=== PATIENT | female | born 1960 | race Caucasian/White ===

== ENCOUNTER 2019-08-30 22:29 | Emergency (ER) | payer BC ==
[~2019-08-30] VITALS: Ht 160 cm; Wt 55.8 kg
[2019-08-30] MEDS ORDERED: HYDROCODONE/APAP 10-325 MG TABLET ONE (22:57)
[2019-08-30] MEDS ORDERED: HYDROCODONE/APAP 10-325 MG TABLET PO ONE (23:00)
[2019-08-31 00:21] VITALS: BP 128/88
--- NOTE | 2019-08-31 00:21 | NUR ---
Patient discharged to home in stable condition. Written and verbal after care instructions given. Patient verbalizes understanding of instructions. Stressed follow up or return to ER for worsening s/s. Pt states she feels better. Will be taking [employer] home.
== END 2019-08-31 00:22 | disposition home or self-care (01) ==
LOC: ER 22:29
DX: S13.4XXA Sprain of ligaments of cervical spine, initial encounter (principal); W18.30XA Fall on same level, unspecified, initial encounter; Y92.89 Other specified places as the place of occurrence of the external cause; Z98.84 Bariatric surgery status; Z90.49 Acquired absence of other specified parts of digestive tract; Z90.710 Acquired absence of both cervix and uterus; M54.5 Low back pain; M25.551 Pain in right hip; M25.561 Pain in right knee
CPT/HCPCS: 72125; 72192; 73562; A4663

== ENCOUNTER 2019-09-17 21:54 | Emergency (ER) | payer BC ==
[~2019-09-17] VITALS: Ht 160 cm; Wt 64.9 kg
[~2019-09-17 21:54] MED LIST: CLON1TAB PO; LORA1TAB PO; QUET100T PO; QUET300T2 PO; SERT100T PO
--- NOTE | 2019-09-17 22:20 | NUR ---
Dr. Hinkle at bedside for MSE
[2019-09-17] MEDS ORDERED: HYDROCODONE/APAP 5-325MG TABLET PO ONE (22:30)
[2019-09-17] MEDS ORDERED: HYDROCODONE/APAP 5-325MG TABLET ONE (22:37)
--- NOTE | 2019-09-17 23:46 | NUR ---
Patient discharged to home in stable condition. Written and verbal after care instructions given. Patient verbalizes understanding of instructions. Stressed follow up or return to ER for worsening s/s. Patient ambulating with steady gait. Patient noted getting inside the rear passenger side of ride share vehicle. NAD noted
[2019-09-17 23:48] VITALS: BP 121/73
== END 2019-09-17 23:46 | disposition home or self-care (01) ==
LOC: ER 21:59
DX: M25.551 Pain in right hip (principal); M25.511 Pain in right shoulder; M25.521 Pain in right elbow; W18.30XA Fall on same level, unspecified, initial encounter; Y92.89 Other specified places as the place of occurrence of the external cause
CPT/HCPCS: 72170; A4663

== ENCOUNTER 2019-11-17 01:03 | Emergency (ER) | payer BC, OTHER ==
[~2019-11-17] VITALS: Ht 160 cm; Wt 55.8 kg
--- NOTE | 2019-11-17 01:25 | NUR ---
DR. LONDON AT BEDSIDE FOR MSE.
[2019-11-17] MEDS ORDERED: HYDROCODONE/APAP 10-325 MG TABLET PO ONE (01:30)
[2019-11-17] MEDS ORDERED: HYDROCODONE/APAP 10-325 MG TABLET ONE (01:33)
--- NOTE | 2019-11-17 01:58 | NUR ---
Patient discharged to home in stable condition. Written and verbal after care instructions given. Patient verbalizes understanding of instructions. Stressed follow up or return to ER for worsening s/s. patient left with stable gait.
[2019-11-17 01:59] VITALS: BP 139/94
== END 2019-11-17 02:12 | disposition home or self-care (01) ==
LOC: ER 01:09
DX: M54.5 Low back pain (principal); M25.551 Pain in right hip; G89.4 Chronic pain syndrome; W10.9XXA Fall (on) (from) unspecified stairs and steps, initial encounter; Y92.89 Other specified places as the place of occurrence of the external cause; Z98.84 Bariatric surgery status; F31.9 Bipolar disorder, unspecified; Z90.710 Acquired absence of both cervix and uterus; Z79.899 Other long term (current) drug therapy; Z76.5 Malingerer [conscious simulation]
CPT/HCPCS: 72100; 73502; A4663

== ENCOUNTER 2019-11-22 14:45 | Emergency (ER) | payer BC ==
[~2019-11-22] VITALS: Ht 160 cm; Wt 55.8 kg
[2019-11-22] MEDS: ONDANSETRON ODT 4 MG TAB.RAPDIS SL ONE (15:31)
[2019-11-22] MEDS ORDERED: ONDANSETRON ODT 4 MG TAB.RAPDIS ONE (15:31)
[2019-11-22] MEDS ORDERED: HYDROCODONE/APAP 10-325 MG TABLET ONE (15:31)
[2019-11-22] MEDS ORDERED: LORAZEPAM 1 MG TABLET ONE (15:32)
[2019-11-22] MEDS: HYDROCODONE/APAP 10-325 MG TABLET PO ONE (15:43)
[2019-11-22] MEDS: LORAZEPAM 0.5 MG TABLET PO ONE (15:43)
--- NOTE | 2019-11-22 15:43 | NUR ---
Patient discharged to home in stable condition. Written and verbal after care instructions given. Patient verbalizes understanding of instructions. Stressed follow up or return to ER for worsening s/s.pt using ub[employer] to go home.
== END 2019-11-22 15:45 | disposition home or self-care (01) ==
LOC: ER 14:45
DX: Z76.0 Encounter for issue of repeat prescription (principal); G89.4 Chronic pain syndrome; M54.5 Low back pain; Z98.84 Bariatric surgery status; Z90.710 Acquired absence of both cervix and uterus; F31.9 Bipolar disorder, unspecified; Z79.899 Other long term (current) drug therapy
CPT/HCPCS: A4663; Q0162

== ENCOUNTER 2019-12-16 04:18 | Emergency (ER) | payer BC ==
[~2019-12-16] VITALS: Ht 162.6 cm; Wt 64.9 kg
[2019-12-16] MEDS ORDERED: HYDR-4384 PO (04:43)
--- NOTE | 2019-12-16 04:44 | NUR ---
Dr. Rueda at bedside for MSE.
[2019-12-16] MEDS ORDERED: HYDROCODONE/APAP 10-325 MG TABLET ONE (04:53)
--- NOTE | 2019-12-16 04:58 | NUR ---
Patient discharged to home in stable condition. Written and verbal after care instructions given. Patient verbalizes understanding of instructions. Stressed follow up or return to ER for worsening s/s. aa/ox4. able to speak in complete sentences no s/s of distress. In stable condition. instructed pt not to drive. Pt stated will take uber home all belongings with pt
[2019-12-16 04:59] VITALS: BP 133/79
[2019-12-16] MEDS ORDERED: HYDROCODONE/APAP 10-325 MG TABLET PO ONE (05:00)
== END 2019-12-16 05:06 | disposition home or self-care (01) ==
LOC: ER 04:21
DX: S70.01XA Contusion of right hip, initial encounter (principal); S80.01XA Contusion of right knee, initial encounter; W07.XXXA Fall from chair, initial encounter; Y92.89 Other specified places as the place of occurrence of the external cause; G89.4 Chronic pain syndrome; M54.40 Lumbago with sciatica, unspecified side; Z98.84 Bariatric surgery status; Z90.710 Acquired absence of both cervix and uterus; F31.9 Bipolar disorder, unspecified; Z79.899 Other long term (current) drug therapy; Z91.81 History of falling
CPT/HCPCS: A4663

== ENCOUNTER 2020-01-14 01:16 | Emergency (ER) | payer BC ==
[~2020-01-14] VITALS: Ht 160 cm; Wt 55.8 kg
[~2020-01-14 01:16] MED LIST changes: +HYDR-4384 PO
[2020-01-14] MEDS ORDERED: KETOROLAC TROMETHAMINE 30 MG INJ IM ONE (01:30)
[2020-01-14] MEDS ORDERED: KETOROLAC TROMETHAMINE 30 MG INJ ONE (01:30)
[2020-01-14 01:33] VITALS: BP 112/83
--- NOTE | 2020-01-14 01:33 | NUR ---
Patient discharged to home in stable condition. Written and verbal after care instructions given. Patient verbalizes understanding of instructions. Stressed follow up or return to ER for worsening s/s. Patient is able to ambulated very well without any distress or discomfort unassisted.
== END 2020-01-14 01:34 | disposition home or self-care (01) ==
LOC: ER 01:19
DX: M25.561 Pain in right knee (principal); G89.4 Chronic pain syndrome; Z91.81 History of falling; F31.9 Bipolar disorder, unspecified; Z88.0 Allergy status to penicillin; Z88.2 Allergy status to sulfonamides; Z98.84 Bariatric surgery status; Z90.49 Acquired absence of other specified parts of digestive tract; Z90.710 Acquired absence of both cervix and uterus; Z79.899 Other long term (current) drug therapy
CPT/HCPCS: 96372; 99283; J1885; A4663

== ENCOUNTER 2020-01-16 13:40 | Emergency (ER) | payer BC ==
[~2020-01-16] VITALS: Ht 160 cm; Wt 55.8 kg
[2020-01-16] MEDS ORDERED: KETOROLAC TROMETHAMINE 30 MG INJ IM ONE (15:45)
[2020-01-16] MEDS ORDERED: KETOROLAC TROMETHAMINE 30 MG INJ ONE (15:46)
[2020-01-16 15:59] VITALS: BP 120/88
== END 2020-01-16 15:59 | disposition home or self-care (01) ==
LOC: ER 13:46
DX: S13.9XXA Sprain of joints and ligaments of unspecified parts of neck, initial encounter (principal); W19.XXXA Unspecified fall, initial encounter; Y92.89 Other specified places as the place of occurrence of the external cause; F31.9 Bipolar disorder, unspecified; G89.4 Chronic pain syndrome; R29.6 Repeated falls; Z98.84 Bariatric surgery status; Z90.49 Acquired absence of other specified parts of digestive tract; Z88.0 Allergy status to penicillin; Z88.2 Allergy status to sulfonamides; Z79.899 Other long term (current) drug therapy; Z76.5 Malingerer [conscious simulation]
CPT/HCPCS: 72040; 96372; 99283; J1885; A4663

== ENCOUNTER 2020-02-16 06:10 | Emergency (ER) | payer MEDICARE, BC ==
[~2020-02-16] VITALS: Ht 167.6 cm; Wt 54.4 kg
--- NOTE | 2020-02-16 06:56 | NUR ---
Patient discharged to home in stable condition. Written and verbal after care instructions given. Patient verbalizes understanding of instructions. Stressed follow up or return to ER for worsening s/s. Ambulated from ER with stable gait. All belongings with patient.
[2020-02-16 06:57] VITALS: BP 121/75
== END 2020-02-16 06:57 | disposition home or self-care (01) ==
LOC: ER 06:38
DX: G89.4 Chronic pain syndrome (principal); Z76.5 Malingerer [conscious simulation]; R29.6 Repeated falls; F31.9 Bipolar disorder, unspecified; Z90.49 Acquired absence of other specified parts of digestive tract; Z98.84 Bariatric surgery status; Z90.710 Acquired absence of both cervix and uterus; Z79.899 Other long term (current) drug therapy
CPT/HCPCS: A4663

== ENCOUNTER 2020-06-10 01:08 | Emergency (ER) | payer MEDICARE, BC ==
[~2020-06-10] VITALS: Ht 165.1 cm; Wt 57.6 kg
[2020-06-10] MEDS ORDERED: ONDANSETRON 4 MG/2 ML VIAL IV ONE (01:30)
[2020-06-10] MEDS ORDERED: MORPHINE SULFATE 4 MG/1 ML DISP.SYRIN IV ONE (01:30)
[2020-06-10] MEDS ORDERED: ONDANSETRON 4 MG/2 ML VIAL ONE (01:38)
[2020-06-10] MEDS ORDERED: MORPHINE SULFATE 4 MG/1 ML DISP.SYRIN ONE (01:38)
--- NOTE | 2020-06-10 01:42 | NUR ---
Patient examined by MD earlier. Orders received.
[2020-06-10 01:52] VITALS: BP 147/67
--- NOTE | 2020-06-10 02:03 | NUR ---
Patient dischared at this time. Stable condition. Stable gait. Advised to not drive.
== END 2020-06-10 02:07 | disposition home or self-care (01) ==
LOC: ER 01:09
DX: G43.909 Migraine, unspecified, not intractable, without status migrainosus (principal); F31.9 Bipolar disorder, unspecified; G89.4 Chronic pain syndrome; Z88.0 Allergy status to penicillin; Z88.2 Allergy status to sulfonamides; F41.9 Anxiety disorder, unspecified; Z90.49 Acquired absence of other specified parts of digestive tract
CPT/HCPCS: 96374; 96375; 99284; J2270; J2405; A4663; J7030

== ENCOUNTER 2020-06-12 02:07 | Emergency (ER) | payer MEDICARE, BC ==
[~2020-06-12] VITALS: Ht 160 cm; Wt 57.6 kg
--- NOTE | 2020-06-12 03:17 | NUR ---
Dr. Lopez at bedside for MSE.
[2020-06-12] MEDS ORDERED: MORPHINE SULFATE 2 MG/1 ML DISP.SYRIN IV ONE (03:30)
[2020-06-12] MEDS ORDERED: IV NS 1000 ML 1,000 ML IV ONE (03:30)
[2020-06-12] MEDS ORDERED: KETOROLAC TROMETHAMINE 30 MG INJ IVP ONE (03:30)
[2020-06-12] MEDS ORDERED: METOCLOPRAMIDE HCL 10 MG/2 ML VIAL IV ONE (03:30)
[2020-06-12] MEDS ORDERED: DEXAMETHASONE SOD PHOSPHATE 4 MG INJ IV ONE (03:30)
[2020-06-12] MEDS ORDERED: DEXAMETHASONE SOD PHOSPHATE 10 MG INJ ONE (03:48)
[2020-06-12] MEDS ORDERED: METOCLOPRAMIDE HCL 10 MG/2 ML VIAL ONE (03:48)
[2020-06-12] MEDS ORDERED: KETOROLAC TROMETHAMINE 30 MG INJ ONE (03:48)
[2020-06-12] MEDS ORDERED: MORPHINE SULFATE 2 MG/1 ML DISP.SYRIN ONE (03:49)
--- NOTE | 2020-06-12 06:02 | NUR ---
Patient discharged to home in stable condition. Written and verbal after care instructions given. Patient verbalizes understanding of instructions. Stressed follow up or return to ER for worsening s/s. Patient out of ER with steady gait, no acute signs of distress, VSS, all belongings taken, IV site discontinued.
[2020-06-12 06:03] VITALS: BP 140/90
== END 2020-06-12 06:03 | disposition home or self-care (01) ==
LOC: ER 02:10
DX: R51.9 Headache, unspecified (principal); G89.4 Chronic pain syndrome; F31.9 Bipolar disorder, unspecified; Z88.0 Allergy status to penicillin; Z88.2 Allergy status to sulfonamides; Z90.49 Acquired absence of other specified parts of digestive tract; Z98.84 Bariatric surgery status; Z79.899 Other long term (current) drug therapy
CPT/HCPCS: 96361; 96374; 96375; 99284; J1100; J1885; J2270; J2765; A4663; J7030

== ENCOUNTER 2021-04-20 00:36 | Emergency (ER) | payer MEDICARE, BC ==
[~2021-04-20] VITALS: Ht 160 cm; Wt 60.3 kg
--- NOTE | 2021-04-20 00:48 | NUR ---
Dr Lopez into eval patient.
[2021-04-20] MEDS ORDERED: HYDROCODONE/APAP 5-325MG TABLET PO ONE ×2 (01:15)
[2021-04-20] MEDS ORDERED: HYDROCODONE/APAP 5-325MG TABLET ONE ×2 (01:20→01:33)
[2021-04-20] MEDS ORDERED: IV NS 1000 ML 1,000 ML IV ONE (02:45)
[2021-04-20 02:56] LABS: HEMATOCRIT 31.4 % (31.2-41.9); MEAN CORPUSCULAR HEMOGLOBIN 24.2 uug (24.7-32.8); MEAN CORPUSCULAR VOLUME 74.7 fL (75.5-95.3); PLATELET COUNT (AUTO) 362 K/uL (179-408)
--- NOTE | 2021-04-20 02:56 | NUR ---
Patient out of unit for ct scan via [place].
[2021-04-20 03:09] LABS: BILIRUBIN,DIRECT 0.1 mg/dL (0.0-0.2); BILIRUBIN,TOTAL 0.4 mg/dL (0.2-1.0); CREATININE 0.6 mg/dL (0.6-1.3); POTASSIUM 3.8 mmol/L (3.5-5.1); TOTAL PROTEIN, SERUM 6.8 g/dL (6.4-8.2)
[2021-04-20] MEDS ORDERED: HYDR-4209 PO ×2 (03:53→03:55)
--- NOTE | 2021-04-20 04:00 | NUR ---
IV removed. Catheter intact and site benign. Pressure and 4x4 gauze applied to site. No bleeding noted.
[2021-04-20 04:01] VITALS: BP 135/85
--- NOTE | 2021-04-20 04:06 | NUR ---
Patient discharged to home in stable condition with [employer] taking patient home. Written and verbal after care instructions given. Patient verbalizes understanding of instructions. Stressed follow up or return to ER for worsening s/s.
== END 2021-04-20 04:06 | disposition home or self-care (01) ==
LOC: ER 00:40
DX: Z91.81 History of falling (principal); M54.50 Low back pain, unspecified; G89.4 Chronic pain syndrome; Z90.710 Acquired absence of both cervix and uterus; Z90.49 Acquired absence of other specified parts of digestive tract; Z98.84 Bariatric surgery status; F31.9 Bipolar disorder, unspecified; F41.9 Anxiety disorder, unspecified; Z79.899 Other long term (current) drug therapy; Z88.0 Allergy status to penicillin; Z88.2 Allergy status to sulfonamides
CPT/HCPCS: 36415; 72192; 72220; 85025; A4663; J7030

== ENCOUNTER 2021-04-27 03:06 | Emergency (ER) | payer MEDICARE, BC ==
[~2021-04-27] VITALS: Ht 160 cm; Wt 60.3 kg
[~2021-04-27 03:06] MED LIST changes: +HYDR-4209 PO
[2021-04-27] MEDS ORDERED: HYDR-3980 PO (03:33)
[2021-04-27 03:45] VITALS: BP 138/72
[2021-04-27] MEDS ORDERED: HYDROCODONE/APAP 10-325 MG TABLET PO ONE (03:45)
--- NOTE | 2021-04-27 03:45 | NUR ---
Patient discharged to home in stable condition. Written and verbal after care instructions given. Patient verbalizes understanding of instructions. Stressed follow up or return to ER for worsening s/s. Steady gait. Picked up by family.
[2021-04-27] MEDS ORDERED: HYDROCODONE/APAP 10-325 MG TABLET ONE (03:48)
== END 2021-04-27 03:46 | disposition home or self-care (01) ==
LOC: ER 03:09
DX: M25.512 Pain in left shoulder (principal); M25.511 Pain in right shoulder; F31.9 Bipolar disorder, unspecified; G89.4 Chronic pain syndrome; Z90.49 Acquired absence of other specified parts of digestive tract; Z98.84 Bariatric surgery status; Z90.710 Acquired absence of both cervix and uterus; Z88.0 Allergy status to penicillin; Z88.2 Allergy status to sulfonamides; F41.9 Anxiety disorder, unspecified; Z79.899 Other long term (current) drug therapy
CPT/HCPCS: A4663

== ENCOUNTER 2021-05-29 15:42 | Emergency (ER) | payer MEDICARE, BC ==
[~2021-05-29] VITALS: Ht 160 cm; Wt 60.3 kg
[~2021-05-29 15:42] MED LIST changes: +HYDR-3980 PO
--- NOTE | 2021-05-29 15:54 | NUR ---
DR JACOBS AT BEDSIDE FOR EVALUATION .
[2021-05-29] MEDS ORDERED: HYDROCODONE/APAP 5-325MG TABLET PO ONE (16:00)
[2021-05-29] MEDS ORDERED: BACL10TA PO (16:03)
[2021-05-29] MEDS ORDERED: ACET1TAB23 PO (16:03)
[2021-05-29] MEDS ORDERED: HYDROCODONE/APAP 5-325MG TABLET ONE (16:08)
--- NOTE | 2021-05-29 16:13 | NUR ---
Patient discharged to home in stable condition. Written and verbal after care instructions given. Patient verbalizes understanding of instructions. Stressed follow up or return to ER for worsening s/s.
== END 2021-05-29 16:14 | disposition home or self-care (01) ==
LOC: ER 15:42
DX: M26.603 Bilateral temporomandibular joint disorder, unspecified (principal); F31.9 Bipolar disorder, unspecified; G89.4 Chronic pain syndrome; Z90.49 Acquired absence of other specified parts of digestive tract; Z98.84 Bariatric surgery status; Z79.899 Other long term (current) drug therapy
CPT/HCPCS: A4663

== ENCOUNTER 2021-06-15 11:05 | Emergency (ER) | payer MEDICARE, BC ==
[~2021-06-15] VITALS: Ht 160 cm; Wt 60.3 kg
[~2021-06-15 11:05] MED LIST changes: +ACET1TAB23 PO; +BACL10TA PO
[2021-06-15] MEDS ORDERED: AZIT250T PO (11:24)
[2021-06-15] MEDS ORDERED: GABAPENTIN 100 MG CAPSULE PO ONE (11:30)
--- NOTE | 2021-06-15 11:31 | NUR ---
PT WAS EVALUATED BY DR JACKSON. PT WAS MEDICATED ACCORDING TO ER MD ORDERS. D/C INSTRUCTIONS GIVEN TO THE PT BY DR JACKSON.
[2021-06-15 11:33] VITALS: BP 129/77
[2021-06-15] MEDS ORDERED: GABAPENTIN 100 MG CAPSULE ONE (11:38)
== END 2021-06-15 12:23 | disposition home or self-care (01) ==
LOC: ER 11:05 → MERGE 11:05 → ER 12:23
DX: H92.02 Otalgia, left ear (principal); Z76.5 Malingerer [conscious simulation]; Z88.0 Allergy status to penicillin; Z88.2 Allergy status to sulfonamides; G89.4 Chronic pain syndrome; F31.9 Bipolar disorder, unspecified; Z79.899 Other long term (current) drug therapy
CPT/HCPCS: A4663